=== PATIENT | male | born 1995 | race Caucasian/White ===

== ENCOUNTER 2017-06-07 19:03 | Emergency (ER) | payer BC, OTHER ==
[2017-06-07] MEDS ORDERED: Amoxicillin/Clavulanate TAB* 875 MG PO ONE (21:04)
--- NOTE | 2017-06-07 21:11 | UC ---
Headache HPI - HPI Summary HPI Summary: Patient presents with complaints of left sided frontal headache that has been intermittent for 3-4days. He states that it is gone in the morning and returns during the afternoon. He also reports that he has nasal congestion, and plugging. He states he has increased nasal discharge. He states that the headaches come on gradually, and are not the worse headache pain in his life. He denies any blurred vision, slurred speech, numbness, tingling or weakness of the extremities, nausea or vomiting. - History Of Current Complaint Chief Complaint: UCRespiratory Stated Complaint: EYE PAIN Time Seen by Provider: 06/07/17 20:52 Hx Obtained From: Patient Onset/Duration: Gradual Onset, Lasting Days Onset Of Symptoms: Gradual Currently Pain Is: Current Pain Scale(0-10)= - 3/10 Timing: Intermittent, Lasting:, Hours Character: Throbbing Location of Headache: Frontal Aggravating Factor: Nothing Allevating Factors: Rest Associated Signs And Symptoms: Positive: Sinus Pressure - Risk Factors Meningitis Risk Factors: Negative SDH Risk Factors: Negative Temporal Arteritis Risk Factors: Negative - Allergies/Home Medications Allergies/Adverse Reactions: Allergies Allergy/AdvReac Type Severity Reaction Status Date / Time No Known Allergies Allergy Verified 06/07/17 19:19 PMH/Surg Hx/FS Hx/Imm Hx Previously Healthy: Yes - Surgical History Surgical History: None - Family History Known Family History: Positive: None - Social History Alcohol Use: Occasionally Substance Use Type: None Smoking Status (MU): Never Smoked Tobacco Review of Systems Constitutional: Negative Skin: Negative Eyes: Negative ENT: Nasal Discharge, Sinus Congestion, Sinus Pain/Tenderness Respiratory: Cough Neurological: Headache All Other Systems Reviewed And Are Negative: Yes Physical Exam Triage Information Reviewed: Yes Appearance: Well-Appearing Vital Signs: Initial Vital Signs Temp 98.9 F 06/07/17 19:16 Pulse 73 06/07/17 19:16 Resp 12 06/07/17 19:16 BP 159/83 06/07/17 19:16 Pulse Ox 99 06/07/17 19:16 Vital Signs Reviewed: Yes Eye Exam: Normal ENT Exam: Normal ENT: Positive: Nasal congestion, Nasal drainage, Other: - tendeness to palpation over the frontal sinus. Neck exam: Normal Respiratory Exam: Normal Cardiovascular Exam: Normal Headache Course/Dx - Course Course Of Treatment: Patient presents with complaints of left sided frontal head pain, with normal neuro exam. He has tenderness to palpation over the frontal sinuses. He has associated headache that comes on gradually and is not the worse headache of his life. I do not suspect any stroke, or bleeds given his age and lack of rish factors and based on his cc/hpi and physical exam. I think his headache is related to a sinus infection and he was given a loading dose of augmentin 875mg in the department, and an rx for augmentin 875 po bid x 10 days. He understands that if his headache does not improve with this treatment that he will need additional imaging such as ct of the brain to rule out any other underlying cause of his headache. He verbalized understanding and was in agreement of the discharge plan. - Differential Dx/Diagnosis Differential Diagnosis/HQI/PQRI: Sinus Headache Provider Diagnoses: sinus headache Discharge - Discharge Plan Condition: Stable Disposition: HOME Prescriptions: Amoxicillin/Clavulanate TAB* [Augmentin TAB 875*] 875 mg PO BID #20 tab Patient Education Materials: Sinusitis (ED), Acute Headache (ED) Referrals: No Primary Care Phys,NOPCP [Primary Care Provider] -
[2017-06-07 21:15] VITALS: BP 133/89
== END 2017-06-07 21:11 | disposition home or self-care (01) ==
LOC: UCEAST 19:03
DX: G44.89 Other headache syndrome (principal)
CPT/HCPCS: 99212; A9270-GY; G0463